=== PATIENT | male | born 1995 | race African-American/Black ===

== ENCOUNTER 2019-09-19 01:37 | Inpatient (IN) | payer OTHER ==
[~2019-09-19] VITALS: Ht 180.3 cm; Wt 76.1 kg
[2019-09-19] VITALS (45 sets, daily range): BP systolic 97–160; BP diastolic 51–97
[2019-09-19] MEDS ORDERED: KETOROLAC 60 MG/2 ML VIAL IM ONE (02:30)
[2019-09-19] MEDS ORDERED: KCL 20MEQ IN D5/NS 1000ML 1,000 ML IV SCH (02:59)
[2019-09-19] MEDS ORDERED: ACETAMINOPHEN TAB 650MG DOSE (2X325MG) PO PRN (03:00)
[2019-09-19] MEDS ORDERED: PERCOCET 5MG/325MG TAB PO PRN ×2 (03:00)
[2019-09-19] MEDS ORDERED: LEVALBUTEROL 1.25 MG/0.5 ML CONCENTRATE NEB NEB PRN (03:00)
[2019-09-19] MEDS ORDERED: ONDANSETRON 4MG/2ML VIAL IV PRN (03:00)
[2019-09-19] MEDS ORDERED: BISACODYL 10 MG SUPP PR PRN (03:00)
[2019-09-19 03:36] LABS: BASO % 0.4 % (0.0-1.0); EOS # 0.1 10^3/uL (0.0-0.5); EOS % 0.7 % (0.0-3.0); HEMATOCRIT 44.1 % (42.0-52.0); HEMOGLOBIN 14.8 g/dl (13.5-17.5); LYMPH # 2.5 10^3/uL (1.5-5.0); LYMPH % 35.6 % (24.0-44.0); MEAN CORPUSCULAR HEMOGLOBIN 30.5 pg (27.0-33.0); MEAN CORPUSCULAR HGB CONC 33.6 g/dl (32.0-36.5); MEAN CORPUSCULAR VOLUME 90.9 fl (80.0-96.0); MONO # 0.6 10^3/uL (0.0-0.8); MONO % 7.9 % (0.0-5.0); NEUTROPHILS # 3.9 10^3/uL (1.5-8.5); NEUTROPHILS % 55.3 % (36.0-66.0); PLATELET COUNT, AUTOMATED 333 10^3/uL (150-450); RED BLOOD COUNT 4.85 10^6/uL (4.30-6.10); WHITE BLOOD COUNT 7.1 10^3/uL (4.0-10.0)
[2019-09-19] MEDS ORDERED: flumazeniL 0.5 MG/5 ML VIAL As Ordered ONE (03:36)
[2019-09-19] MEDS ORDERED: MIDAZOLAM INJ 2MG/2ML VIAL (J2250 PER 1MG) As Ordered ONE (03:37)
[2019-09-19] MEDS ORDERED: LIDOCAINE 1% MDV 20ML VIAL As Ordered ONE (03:39)
[2019-09-19 03:47] LABS: INR 1.09; PROTHROMBIN TIME 13.8 SECONDS (11.8-14.0)
[2019-09-19 03:48] LABS: PARTIAL THROMBOPLASTIN TIME 31.4 SECONDS (25.0-38.4)
[2019-09-19 04:03] LABS: BLOOD UREA NITROGEN 16 MG/DL (7-18); CALCIUM LEVEL 9.4 MG/DL (8.5-10.1); CARBON DIOXIDE LEVEL 27 MEQ/L (21-32); CHLORIDE LEVEL 107 MEQ/L (98-107); CREATININE FOR GFR 1.35 MG/DL (0.70-1.30); GLOMERULAR FILTRATION RATE > 60.0 (>60); GLUCOSE, FASTING 99 MG/DL (70-100); POTASSIUM SERUM 4.1 MEQ/L (3.5-5.1); SODIUM LEVEL 139 MEQ/L (136-145)
[2019-09-19] MEDS ORDERED: KETOROLAC 30 MG/ML 1ML VIAL As Ordered ONE (04:16)
--- NOTE | 2019-09-19 04:27 | REP ---
Clinical: Right-sided chest pain. Technique: PA and lateral. Findings: There is a large right pneumothorax with relatively mild contralateral mediastinal shift. The mediastinum and cardiac silhouette are otherwise normal in appearance. The left hemithorax is well-aerated and clear. The skeletal structures are intact. Impression: Large right tension pneumothorax with mild contralateral mediastinal shift. Electronically Signed by Haja Beth MD 09/19/2019 04:19 A
[2019-09-19] MEDS ORDERED: MIDAZOLAM INJ 2MG/2ML VIAL (J2250 PER 1MG) IV STA ×2 (04:48)
[2019-09-19] MEDS ORDERED: LIDOCAINE 1% MDV 20ML VIAL IM ONE (05:00)
[2019-09-19] MEDS ORDERED: KETOROLAC 30 MG/ML 1ML VIAL IV ONE (05:00)
--- NOTE | 2019-09-19 05:02 | REP ---
Clinical: Status post chest tube placement. Comparison: 09/19/2019 and 02:29 a.m.. Findings: Right chest tube has been placed with its tip approaching the medial apex. Reinflation and improved aeration to the right hemithorax is noted with small residual pneumothorax and elements of right basilar atelectasis noted. Mediastinum and cardiac silhouette are relatively normal. The left hemithorax is well-aerated and clear. No left-sided effusion or pneumothorax. The skeletal structures are intact. Impression: 1. Subsequent satisfactory right chest tube placement with partial reinflation and improved aeration to the right hemithorax. Small residual right apical pneumothorax noted. 2. Small amount of residual right basilar atelectasis and possible partial collapse along the medial right hemithorax. Electronically Signed by Haja Beth MD 09/19/2019 04:53 A
--- NOTE | 2019-09-19 06:07 | RO ---
DATE OF PROCEDURE: 09/19/2019 PREPROCEDURE DIAGNOSIS: Right pneumothorax. POSTPROCEDURE DIAGNOSIS: Right pneumothorax. PROCEDURE: Insertion of right lateral anterior chest tube. SURGEON: Dr. Tim Butler LANDSCAPE PAINTER: ANESTHESIA: DESCRIPTION OF PROCEDURE: Under satisfactory moderate sedation achieved with 4 mg of Versed, the patient was prepped and draped in the usual sterile fashion. The skin, subcutaneous tissue, muscle and pleura were infiltrated with 1% lidocaine. Incision was made and the chest was entered in the approximate fourth intercostal space. A tunnel was created without difficulty and a #20 chest tube was placed anteriorly. The chest tube was secured to the chest wall with #2 Tevdek suture and connected to the Pleur-evac. The patient tolerated the procedure well and a chest x-ray is pending.
--- NOTE | 2019-09-19 06:39 | HPE ---
DATE OF ADMISSION: 09/19/2019 The patient is seen at the request of Dr. Ceh in the emergency room for chest pain, shortness of breath and a pneumothorax on the right. HISTORY OF PRESENT ILLNESS: The patient is a 24-year-old, black male who approximately four days ago on felt a sudden lower chest on his right side. This was shortly thereafter accompanied by shortness of breath. The pain gradually subsided, but the shortness of breath has gotten worse over the last three to four days. He is short of breath walking around his house. He has had no cough. No fever, chills, or sweats. The chest pain is located in the inferior border of his chest on the right side anteriorly and laterally. It is exacerbated by taking a deep breath. It has gradually subsided over the last few days. There is no dysphagia, although he says he has not been eating as well as he usually does. There is no history of trauma. There is no history of vigorous exercise in or around the time he experienced this chest pain and shortness of breath. PAST MEDICAL HISTORY: None. PAST SURGICAL HISTORY: Bilateral anterior cruciate ligament repairs and an inguinal hernia in the past. ALLERGIES: None. MEDICATIONS AT HOME: None. TRAVEL HISTORY: He was brought up in [place]. He has traveled to the [facility] and has recently deployed and returned from [place]. EXPOSURES: No exposures to tuberculosis. No dogs, birds or cats at home. HABITS: He used to smoke about a pack a week, but quit two years ago. Occasionally imbibes alcohol. No illicit drugs. OCCUPATIONAL HISTORY: He is in the . He works as a supply sergeant. No asbestos exposure. REVIEW OF SYSTEMS: Constitutional: See history of present illness (HPI). Eyes: Without diplopia. Without amaurosis fugax. Without prior jaundice. Nose: Without epistaxis. Mouth: Has his own teeth. Respiratory See HPI. Cardiac: Without prior myocardial infarctions, pressure type pain or intermittent claudication. No peripheral edema. GI: Without nausea, vomiting, diarrhea, constipation, melena, hematochezia, abdominal pain or hematemesis. : Without dysuria, hematuria or history of renal stones. Endocrine: Without diabetes. Without thyroid disease. Neurologic: Without paresthesias, paralyses or paresthesias. Psychiatric: Without pathological anxieties, depressions or psychoses. PHYSICAL EXAMINATION: Well developed, well nourished, black male in no acute distress. Temperature 98.6, heart rate 62 in a sinus rhythm, respiratory rate of 16 without the use of accessory muscles, who is 100% saturated on room air. Eyes: Pupils equal round and reactive to light. Extraocular muscles intact. Sclerae nonicteric. Nose: Without deformity. Mouth: Shows his mucous membranes to be pink and moist. Lips and commissures without lesions. There is no thrush. Teeth in good repair. Head: Normocephalic. Neck: Supple. There is no jugular venous distention. No subcutaneous emphysema. Trachea is midline. He has 2+ carotid upstrokes. No lymphadenopathy. No thyromegaly. Lungs: Show markedly decreased breath sounds on the right side. Percussion note is hyperresonant on the right side. Left side shows normal vesicular sounds, without wheezes, rhonchi or rales. Cardiac: Without murmurs, clicks, gallops or rubs. I cannot feel his point of maximal impulse (PMI). S1, S2 are normal Abdomen: Soft. Nontender. Bowel sounds are positive. There is no hepatomegaly. No costovertebral angle (CVA) tenderness. Extremities: Show no pretibial edema. No calf tenderness. No differential swelling of the upper extremities. Skin: Warm, dry and perfused. Without cyanosis or mottling, including that of the nail beds and knees. Neurologic: Shows II-XII intact along with gross motor and gross sensation intact. Gait is not tested. Psychiatric: Shows him to be awake, alert and oriented times three with appropriate mood and affect and conversational. His white count is 7.1 with a hemoglobin and hematocrit of 14.8 and 44.1 respectively with a platelet count of 333. Differential shows 55% neutrophils, 35% lymphocytes, 7% monocytes. There are no immature forms and no toxic granulations. Electrolytes are normal and his BUN and creatinine are 16 and 1.35. He is very muscular and works out and a creatinine of 1.35 is not unexpected. Glucose is 99 with a calcium of 9.4. PT/INR are 13.8/1.0 respectively with a PTT of 31 seconds. His chest x-ray shows a 50-60% pneumothorax on the right side. There is a shift to the left of the mediastinum. There is no subcutaneous emphysema. There are no infiltrates. His lower lobe is pressed and pancaked against the mediastinum. IMPRESSION: Right pneumothorax, atraumatic. PLAN AND DISCUSSION: I will immediately place a chest tube. It looks as though on the chest x-ray that the cupula is still applied to the chest wall and I will therefore place a chest tube laterally, but aim it anteriorly. As noted above, his creatinine is expected as he is very muscular and has increased muscle mass. I will treat his pain with Toradol, Percocet or [place]. I will obtain a CT of his chest once the lung is reexpanded to the chest wall. Will treat him with aggressive lung expansion therapy.
[2019-09-19] MEDS: NORCO, ANEXSIA 5/325MG TABLET (HYDROcodone/ACETAMINOPHEN) PO PRN ×3 (08:12→20:10)
[2019-09-19] MEDS: LEVALBUTEROL 1.25 MG/0.5 ML CONCENTRATE NEB NEB SCH ×3 (08:26→20:07)
[2019-09-19] MEDS: DOCUSATE SODIUM 100 MG CAP PO SCH ×2 (08:47→20:08)
[2019-09-19] MEDS: PANTOPRAZOLE 40MG TAB (PROTONIX) PO SCH (08:48)
[2019-09-19] MEDS: HEPARIN SOD (PORCINE) 5000UNITS/ML VIAL (J1644 PER 1000UNITS) SC SCH ×2 (08:48→20:09)
[2019-09-19] MEDS: MOM 30ML SUSPENSION UDC PO SCH (08:48)
[2019-09-19] MEDS: KETOROLAC 30 MG/ML 1ML VIAL IV SCH ×3 (11:25→22:19)
[2019-09-19] MEDS ORDERED: SLF 3 ML SYR IV PRN (16:30)
[2019-09-19] MEDS: SLF 3 ML SYR IV SCH (20:11)
[2019-09-20] VITALS: BP 130/65
[2019-09-20] MEDS: NORCO, ANEXSIA 5/325MG TABLET (HYDROcodone/ACETAMINOPHEN) PO PRN ×3 (00:57→15:33)
[2019-09-20] MEDS: LEVALBUTEROL 1.25 MG/0.5 ML CONCENTRATE NEB NEB SCH ×4 (01:46→19:38)
[2019-09-20 04:00] VITALS: BP 109/51
[2019-09-20] MEDS: KETOROLAC 30 MG/ML 1ML VIAL IV SCH ×4 (05:00→23:43)
[2019-09-20] MEDS: SLF 3 ML SYR IV SCH ×3 (05:47→20:41)
[2019-09-20 06:20] LABS: BASO % 0.3 % (0.0-1.0); EOS # 0.1 10^3/uL (0.0-0.5); EOS % 1.4 % (0.0-3.0); HEMATOCRIT 39.8 % (42.0-52.0); HEMOGLOBIN 13.3 g/dl (13.5-17.5); LYMPH # 2.6 10^3/uL (1.5-5.0); LYMPH % 43.9 % (24.0-44.0); MEAN CORPUSCULAR HEMOGLOBIN 30.6 pg (27.0-33.0); MEAN CORPUSCULAR HGB CONC 33.4 g/dl (32.0-36.5); MEAN CORPUSCULAR VOLUME 91.5 fl (80.0-96.0); MONO # 0.4 10^3/uL (0.0-0.8); MONO % 7.3 % (0.0-5.0); NEUTROPHILS # 2.8 10^3/uL (1.5-8.5); NEUTROPHILS % 46.9 % (36.0-66.0); PLATELET COUNT, AUTOMATED 290 10^3/uL (150-450); RED BLOOD COUNT 4.35 10^6/uL (4.30-6.10); WHITE BLOOD COUNT 5.9 10^3/uL (4.0-10.0)
[2019-09-20 06:41] LABS: BLOOD UREA NITROGEN 13 MG/DL (7-18); CALCIUM LEVEL 8.4 MG/DL (8.5-10.1); CARBON DIOXIDE LEVEL 28 MEQ/L (21-32); CHLORIDE LEVEL 105 MEQ/L (98-107); CREATININE FOR GFR 1.34 MG/DL (0.70-1.30); GLOMERULAR FILTRATION RATE > 60.0 (>60); GLUCOSE, FASTING 90 MG/DL (70-100); POTASSIUM SERUM 3.8 MEQ/L (3.5-5.1); SODIUM LEVEL 138 MEQ/L (136-145)
[2019-09-20 08:00] VITALS: BP 116/56
[2019-09-20] MEDS: DOCUSATE SODIUM 100 MG CAP PO SCH ×2 (08:23→20:40)
[2019-09-20] MEDS: HEPARIN SOD (PORCINE) 5000UNITS/ML VIAL (J1644 PER 1000UNITS) SC SCH ×2 (08:24→20:40)
[2019-09-20] MEDS: MOM 30ML SUSPENSION UDC PO SCH (08:24)
[2019-09-20] MEDS: PANTOPRAZOLE 40MG TAB (PROTONIX) PO SCH (08:24)
--- NOTE | 2019-09-20 08:44 | REP ---
Clinical: Recent idiopathic pneumothorax. Technique: Axial noncontrast images from the thoracic inlet to the upper abdomen with coronal and sagittal re-formations. Findings: Mild left and moderate right apical scarring is appreciated along with the formation of apical blebs primarily noted in the right apex with multiple chronic septations. Largest right-sided bleb measures roughly 4 cm maximal diameter. A right-sided chest tube is identified extending to the anterior right apex and the previously noted pneumothorax has essentially resolved. Mild right middle lobe and right lower lobe air space disease/atelectasis noted. No significant focal consolidation. No effusion. Tracheobronchial tree appears patent and relatively normal. No obvious adenopathy. Thoracic aorta, pulmonary vasculature, and heart/pericardium appear relatively normal by noncontrast evaluation. Musculoskeletal structures are intact without focal abnormality. Impression: 1. Biapical scarring with few blebs and chronic septations (right greater than left) which may in fact be related to the recent right-sided pneumothorax. 2. Right apical chest tube in stable position and right pneumothorax essentially resolved. Mild right basilar atelectasis/air space disease noted. Electronically Signed by Haja Beth MD 09/20/2019 08:35 A
--- NOTE | 2019-09-20 11:45 | REP ---
Clinical: Pneumothorax. Technique: PA and lateral. Comparison: 09/19/2019. Findings: Right apical chest tube noted. The right hemithorax demonstrates significantly improved reinflation and aeration. Small residual right apical pneumothorax and/or possible right apical bullous changes cannot be excluded. The left hemithorax is clear. The cardiac silhouette is normal. Skeletal structures are intact. Impression: Significant reexpansion and improved aeration to the right hemithorax. Right apical pneumothorax versus small chronic bullous changes cannot be excluded or differentiated. Electronically Signed by Haja Beth MD 09/20/2019 08:16 A
[2019-09-20 12:00] VITALS: BP 126/58
--- NOTE | 2019-09-20 12:10 | IPN ---
DATE OF SERVICE: 09/20/2019 Mr. Pratt pain is being well controlled. There is no air leak in his chest tube. I did obtain a CT scan today which I will discuss below. His vital signs show a maximum temperature (Tmax) of 97.9 with a heart rate that ranges between 67 and 58 in a sinus rhythm, respiratory rate of 16-18 without the use of accessory muscles, who is 99% to 100% saturated on room air, and whose blood pressure is ranging between 116/56 to 109/51. His intake and output over the past 24 hours has been recorded as 2205 in and 1278 out for a positivity of 927 mL. He has put out 28 mL from the chest tube, and there is no air leak. Weight today is 84.9 kg compared to 81.3 kg yesterday. On physical examination, his lungs show normal vesicular sounds on either side. Breath sounds are equal. There are no wheezes, rales, or rhonchi. The cardiac examination: Is without murmurs, clicks, gallops, or rubs. I cannot feel his point of maximal impulse (PMI). S1, S2 are normal. Abdomen: Soft. Nontender. Bowel sounds are positive. There is no hepatomegaly. No costovertebral angle (CVA) tenderness. Extremities: Show no pretibial edema. No calf tenderness. No differential swelling of the upper extremities. Skin: Warm, dry, and perfused. Without cyanosis or mottling, including that of the nail beds and the knees. Neck is supple. There is no jugular venous distention, no subcutaneous emphysema. Trachea is midline. Mouth: Shows his mucous membranes to be pink and moist. Lips and commissures without lesions. There is no thrush. Eyes: Show his pupils to be equal and reactive. Extraocular motor intact. Sclerae anicteric. Neurologic: Shows II-XII intact along with gross motor and gross sensation intact. Gait is not tested. Psychiatric: Shows him to be awake, alert, and oriented times three with appropriate mood and affect and conversational. His white count is 5.9 with a hemoglobin and hematocrit of 13.3 and 39.8 respectively. Platelet count is 290 and stable. Differential shows 46% neutrophils, 43% lymphocytes, 7% monocytes. There are no immature forms and no toxic granulations. His electrolytes are normal and a BUN and creatinine of 13 and 1.34. Calcium is 8.4, glucose is 90. His chest x-ray today shows his lung fully expanded to the chest wall. I was concerned on the immediate postprocedure x-ray that his lung was not completely inflated. Today, on his chest x-ray, it looks flattened to the chest wall. His lateral film does not show subcutaneous emphysema nor is there subcutaneous emphysema seen on the PA film. Chest tube is in good place. His chest CT done this morning show extensive large emphysematous bullae and bleb disease in the right upper lobe and to a lesser extent in the left upper lobe. This is most vividly seen on the coronal reconstruction. I do not see emphysematous changes in the lower lobes or in the right middle lobe. The lung is fully expanded to the chest wall. He has compressive atelectasis changes in the right lower lobe. There is a smooth mass or nodule in the apical basal segment of the lower lobe. This looks more like rounded atelectasis. He is not fluid in the fissure, however. The emphysematous bleb disease on the right is also vividly illustrated on the sagittal reconstruction. To the lesser extent, there is bleb disease on the left side. IMPRESSION: 1. Spontaneous pneumothorax, right side, atraumatic. 2. Distal emphysematous bleb and bullae disease. PLAN AND DISCUSSION: I do not see emphysematous disease throughout the lower lobes, but I will order an alpha-1 antitrypsin. He has a very limited smoking history, to be smoking a pack per week but quit 2 or 3 years ago. I would be surprised if that amount of smoking would be causing this distal emphysematous bleb disease. I suspect it is congenital. As this is his first spontaneous pneumothorax, I would not recommend going to the operating room, although I have counseled him regarding heavy lifting for the next 6 weeks. Should this happen again, he should not ignore the symptomatology and get himself to the emergency room right away. 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
[2019-09-20 16:00] VITALS: BP 120/80
[2019-09-20 20:00] VITALS: BP 135/76
[2019-09-21] VITALS: BP 137/71
[2019-09-21] MEDS: LEVALBUTEROL 1.25 MG/0.5 ML CONCENTRATE NEB NEB SCH ×4 (01:26→19:52)
[2019-09-21 04:00] VITALS: BP 110/55
[2019-09-21] MEDS: KETOROLAC 30 MG/ML 1ML VIAL IV SCH ×4 (04:02→23:00)
[2019-09-21 05:50] LABS: BASO % 0.2 % (0.0-1.0); EOS # 0.1 10^3/uL (0.0-0.5); EOS % 1.2 % (0.0-3.0); HEMATOCRIT 39.8 % (42.0-52.0); HEMOGLOBIN 13.4 g/dl (13.5-17.5); LYMPH # 2.1 10^3/uL (1.5-5.0); LYMPH % 36.8 % (24.0-44.0); MEAN CORPUSCULAR HEMOGLOBIN 30.8 pg (27.0-33.0); MEAN CORPUSCULAR HGB CONC 33.7 g/dl (32.0-36.5); MEAN CORPUSCULAR VOLUME 91.5 fl (80.0-96.0); MONO # 0.4 10^3/uL (0.0-0.8); MONO % 6.9 % (0.0-5.0); NEUTROPHILS # 3.1 10^3/uL (1.5-8.5); NEUTROPHILS % 54.7 % (36.0-66.0); PLATELET COUNT, AUTOMATED 296 10^3/uL (150-450); RED BLOOD COUNT 4.35 10^6/uL (4.30-6.10); WHITE BLOOD COUNT 5.7 10^3/uL (4.0-10.0)
[2019-09-21 06:19] LABS: BLOOD UREA NITROGEN 12 MG/DL (7-18); CALCIUM LEVEL 9.1 MG/DL (8.5-10.1); CARBON DIOXIDE LEVEL 28 MEQ/L (21-32); CHLORIDE LEVEL 104 MEQ/L (98-107); GLOMERULAR FILTRATION RATE > 60.0 (>60); GLUCOSE, FASTING 101 MG/DL (70-100); POTASSIUM SERUM 3.9 MEQ/L (3.5-5.1); SODIUM LEVEL 139 MEQ/L (136-145)
[2019-09-21] MEDS: SLF 3 ML SYR IV SCH ×3 (06:37→20:47)
[2019-09-21] MEDS: DOCUSATE SODIUM 100 MG CAP PO SCH ×2 (07:54→20:47)
[2019-09-21] MEDS: PANTOPRAZOLE 40MG TAB (PROTONIX) PO SCH (07:54)
[2019-09-21] MEDS: MOM 30ML SUSPENSION UDC PO SCH (07:55)
[2019-09-21] MEDS: HEPARIN SOD (PORCINE) 5000UNITS/ML VIAL (J1644 PER 1000UNITS) SC SCH ×2 (07:55→20:47)
[2019-09-21 08:00] VITALS: BP 130/69
--- NOTE | 2019-09-21 08:07 | REP ---
Clinical: Follow up pneumothorax. Technique: PA and lateral. Comparison: 09/20/2019. Findings: Right apical chest tube in stable position. No residual pneumothorax. Right apical scarring/bullous changes as confirmed by recent CT are again identified and stable. No new acute pleuroparenchymal process appreciated. Mediastinum and cardiac silhouette are normal. Skeletal structures are intact. Impression: No residual pneumothorax. No new acute process. Electronically Signed by Haja Beth MD 09/21/2019 07:58 A
--- NOTE | 2019-09-21 10:05 | IPN ---
DATE: 09/21/2019 Mr. Tapia has had a stable 24 hours. There is no air leak and his pain is being well controlled. His vital signs show a maximum temperature (T-max) of 98.1 with a heart rate that ranges between 72 and 55 and in sinus rhythm. Respiratory rate of 16-18 without the use of accessory muscles who is 97-99% saturated in room air and his blood pressure is ranging between 137/71 to 110/55. His intake and output over the last 24 hours has been recorded as 1320 in and 1502 out for a negativity of 180 mL. His has put 2 mL out the chest tube and there is no air leak. His weight today is 84.2 kg today compared to 84.9 kg yesterday. On physical examination, his lungs show equal breath sounds in either side with normal vesicular sounds without wheezes, rhonchi or rales. Percussion note is full to the diaphragm. Cardiac exam is without murmurs, clicks, gallops or rubs. I cannot feel his point of maximum impulse (PMI). S1 and S2 are normal. Abdomen is soft and nontender. Bowel sounds are positive. There is no hepatomegaly. No costovertebral angle (CVA) tenderness. Extremities still show 1+ pretibial edema with no calf tenderness. No differential swelling of the upper extremities. Skin is warm, dry and perfused without cyanosis or mottling including that of the nail beds and knees. Neck is supple. There is no jugular venous distention. No subcutaneous emphysema. Trachea is midline. Mouth shows his mucous membranes to be pink and moist. Lips and commissures are without lesions. There is no thrush. Eyes show his pupils to be equal and reactive. Extraocular movements intact. Sclerae nonicteric. Neurologic shows II-XII intact along with gross motor and gross sensation intact. Gait is not tested. Psychiatric showed him to be awake, alert and oriented times three with appropriate and affect and conversational. His white count today is 5.7 with hemoglobin and hematocrit of 13.4 and 39.8, unchanged from yesterday with a platelet count of 286 and stable. Differential shows 54% neutrophils, 36% lymphocytes, 6% monocytes. There are no immature forms or toxic granulations. Electrolytes are normal with BUN and creatinine of 12 and 1.30, glucose 101 and calcium 9.1. Alpha 1 antitrypsin is still pending. His chest x-ray today shows the lung fully expanded to the chest wall. Costophrenic angles are sharp. There are no infiltrates. There is no subcutaneous emphysema. Chest tube is in good place. IMPRESSION: 1. Subcutaneous pneumothorax right side, atraumatic. 2. 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 PLAN AND DISCUSSION: I will remove his chest tube today. I will get a chest x-ray tomorrow. If the lung is still up, will plan for discharge in the morning. I have gain counseled him in regard to reappearance of symptoms that he should seek immediate medical attention. He does have extensive bleb disease in the upper lobe. I suspect one of these will break eventually.
[2019-09-21 12:00] VITALS: BP 137/76
[2019-09-21 16:00] VITALS: BP 128/61
[2019-09-21 20:00] VITALS: BP 146/67
[2019-09-22] VITALS: BP 139/65
[2019-09-22] MEDS: LEVALBUTEROL 1.25 MG/0.5 ML CONCENTRATE NEB NEB SCH ×4 (01:50→19:47)
[2019-09-22 04:00] VITALS: BP 106/48
[2019-09-22] MEDS: KETOROLAC 30 MG/ML 1ML VIAL IV SCH ×4 (05:00→23:00)
[2019-09-22] MEDS: SLF 3 ML SYR IV SCH ×3 (05:19→21:30)
[2019-09-22 06:17] LABS: BASO % 0.3 % (0.0-1.0); EOS # 0.1 10^3/uL (0.0-0.5); EOS % 1.3 % (0.0-3.0); HEMATOCRIT 40.7 % (42.0-52.0); HEMOGLOBIN 13.6 g/dl (13.5-17.5); LYMPH # 2.4 10^3/uL (1.5-5.0); LYMPH % 38.5 % (24.0-44.0); MEAN CORPUSCULAR HEMOGLOBIN 30.6 pg (27.0-33.0); MEAN CORPUSCULAR HGB CONC 33.4 g/dl (32.0-36.5); MEAN CORPUSCULAR VOLUME 91.7 fl (80.0-96.0); MONO # 0.5 10^3/uL (0.0-0.8); MONO % 8.3 % (0.0-5.0); NEUTROPHILS # 3.2 10^3/uL (1.5-8.5); NEUTROPHILS % 51.4 % (36.0-66.0); PLATELET COUNT, AUTOMATED 305 10^3/uL (150-450); RED BLOOD COUNT 4.44 10^6/uL (4.30-6.10); WHITE BLOOD COUNT 6.1 10^3/uL (4.0-10.0)
[2019-09-22 06:35] LABS: BLOOD UREA NITROGEN 12 MG/DL (7-18); CALCIUM LEVEL 9.3 MG/DL (8.5-10.1); CARBON DIOXIDE LEVEL 30 MEQ/L (21-32); CHLORIDE LEVEL 104 MEQ/L (98-107); CREATININE FOR GFR 1.33 MG/DL (0.70-1.30); GLOMERULAR FILTRATION RATE > 60.0 (>60); GLUCOSE, FASTING 82 MG/DL (70-100); POTASSIUM SERUM 3.7 MEQ/L (3.5-5.1); SODIUM LEVEL 140 MEQ/L (136-145)
--- NOTE | 2019-09-22 07:02 | REP ---
Clinical: Follow up pneumothorax. Comparison: 09/21/2019, 09/20/2019. Findings: Right-sided chest tube has been removed and a small pneumothorax of approximately 15% has recurred. Remainder examination is stable and grossly normal. Apical blebs/bullae (right greater than left) are again identified. Impression: 1. Residual right pneumothorax of approximately 15%. Electronically Signed by Haja Beth MD 09/22/2019 06:53 A
[2019-09-22 08:00] VITALS: BP 156/67
[2019-09-22] MEDS: MOM 30ML SUSPENSION UDC PO SCH (09:00)
[2019-09-22] MEDS: DOCUSATE SODIUM 100 MG CAP PO SCH ×2 (09:00→21:00)
[2019-09-22] MEDS: HEPARIN SOD (PORCINE) 5000UNITS/ML VIAL (J1644 PER 1000UNITS) SC SCH ×2 (09:00→21:00)
[2019-09-22] MEDS: PANTOPRAZOLE 40MG TAB (PROTONIX) PO SCH (09:00)
[2019-09-22 12:00] VITALS: BP 157/66
[2019-09-22 16:00] VITALS: BP 128/56
--- NOTE | 2019-09-22 16:25 | IPN ---
DATE: 09/22/2019 My intent today was to discharge Mr. Tapia, and in fact, I had already written discharge orders. However, this morning his x-ray shows a recurrence of his pneumothorax after removing the chest tube yesterday. At this point in time, he is asymptomatic. On physical examination, his vital signs show a maximum temperature (T max) of 98.6 with a heart rate that ranges between 78 and 86 and is sinus rhythm, a respiratory rate of 16 to 22 without the use of accessory muscles who is 100% saturated on room air, and whose blood pressure is ranging between 146/67 to 106/48. Intake and output over the past 24 hours has been recorded as 1500 in and 1150 out for a positivity of 350 mL. He weighs 85.2 kg today compared to 84.2 kg yesterday. PHYSICAL EXAMINATION: He has equal breath sounds on either side. I hear no wheezes, rhonchi, or rales. Percussion note is full to the diaphragm. Cardiac exam is without murmurs, clicks, gallops or rubs. I cannot feel his point of maximum impulse (PMI). S1, S2 are normal. Abdomen is soft and nontender. Bowel sounds are positive. There is no hepatomegaly or CVA tenderness. Extremities show no pretibial edema. No calf tenderness. No differential swelling of the upper extremities. His skin is warm, dry and perfused without cyanosis or mottling, including that of the nail beds and the knees. Neck is supple. There is no jugular venous distention, no subcutaneous emphysema. Trachea is midline. Mouth shows his mucous membranes to be pink and moist. Lips and commissures without lesions. There is no thrush. Eyes show his pupils to be equal and reactive. Extraocular motions intact. Sclerae anicteric. Neurologic shows II-XII intact along with gross motor and gross sensation intact. Gait is not tested. Psychiatric shows him to be awake and alert, oriented times three with appropriate mood and affect and conversational. His white count today is 6.1 with a hemoglobin and hematocrit of 13.4 and 40.7. Platelet count is 305 and is stable and differential shows 51% neutrophils, 38% lymphocytes, 8% monocytes. There are no immature forms. No toxic granulations. His electrolytes are normal today with a BUN and creatinine of 12 and 1.33, unchanged from his admission creatinine. Glucose is 82 with a calcium of 9.3. PT/INR is 13.8 and 1.09 with a PTT of 31.4 seconds. Chest x-ray shows a 10% pneumothorax, recurrent on the right side. There is no subcutaneous emphysema. Costophrenic angles are sharp. I see no infiltrates. IMPRESSION: 1. Recurrent pneumothorax, right side. 2. 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 PLAN AND DISCUSSION: Seeing the pneumothorax has now recurred, and his extensive distal emphysematous disease, I have indicated to him that there are now indications that we should take him to surgery and remove the blebs and bulla and do a talc pleurodesis. He was initially upset about that, which is not unreasonable considering that he was expecting to go home. He is insisting that his be allowed to come to the hospital, and I have explained to him that no visitors are allowed because of the COVID-19 epidemic. He was initially going to sign out against medical advice (AMA); however, he has changed his mind and we will proceed to the operating room tomorrow. I explained to him the risks and complications, and he is willing to proceed. We have talked about the epidural, Parisi catheter, and the length of hospital stay, which will be at least 5 days with the chest tubes being kept in for 5 days. The patient understands and is willing to proceed. FELIX
[2019-09-22 20:00] VITALS: BP 119/58
[2019-09-23] VITALS: BP 129/69
[2019-09-23] MEDS: LEVALBUTEROL 1.25 MG/0.5 ML CONCENTRATE NEB NEB SCH ×4 (01:47→19:29)
[2019-09-23 04:00] VITALS: BP 127/58
[2019-09-23] MEDS: KETOROLAC 30 MG/ML 1ML VIAL IV SCH ×4 (04:47→23:13)
[2019-09-23] MEDS: SLF 3 ML SYR IV SCH ×2 (04:58→13:13)
[2019-09-23 05:21] LABS: BASO % 0.5 % (0.0-1.0); EOS # 0.1 10^3/uL (0.0-0.5); EOS % 1.4 % (0.0-3.0); HEMATOCRIT 40.5 % (42.0-52.0); HEMOGLOBIN 13.3 g/dl (13.5-17.5); LYMPH % 36.4 % (24.0-44.0); MEAN CORPUSCULAR HEMOGLOBIN 30.4 pg (27.0-33.0); MEAN CORPUSCULAR HGB CONC 32.8 g/dl (32.0-36.5); MEAN CORPUSCULAR VOLUME 92.5 fl (80.0-96.0); MONO # 0.5 10^3/uL (0.0-0.8); MONO % 9.2 % (0.0-5.0); NEUTROPHILS # 2.9 10^3/uL (1.5-8.5); NEUTROPHILS % 52.3 % (36.0-66.0); PLATELET COUNT, AUTOMATED 292 10^3/uL (150-450); RED BLOOD COUNT 4.38 10^6/uL (4.30-6.10); WHITE BLOOD COUNT 5.6 10^3/uL (4.0-10.0)
[2019-09-23 05:44] LABS: BLOOD UREA NITROGEN 12 MG/DL (7-18); CARBON DIOXIDE LEVEL 29 MEQ/L (21-32); CHLORIDE LEVEL 106 MEQ/L (98-107); CREATININE FOR GFR 1.31 MG/DL (0.70-1.30); GLOMERULAR FILTRATION RATE > 60.0 (>60); GLUCOSE, FASTING 93 MG/DL (70-100); SODIUM LEVEL 141 MEQ/L (136-145)
[2019-09-23] MEDS ORDERED: MUPIROCIN 2% OINT 22 GM TUBE TOP ONE (06:00)
[2019-09-23] MEDS ORDERED: ceFAZolin SOD 2 GM in IV 1 EA IV ONE (06:00)
[2019-09-23] MEDS: MOM 30ML SUSPENSION UDC PO SCH (07:46)
[2019-09-23] MEDS: DOCUSATE SODIUM 100 MG CAP PO SCH ×2 (07:46→21:00)
[2019-09-23] MEDS: HEPARIN SOD (PORCINE) 5000UNITS/ML VIAL (J1644 PER 1000UNITS) SC SCH ×2 (07:47→21:00)
[2019-09-23] MEDS: PANTOPRAZOLE 40MG TAB (PROTONIX) PO SCH (07:47)
[2019-09-23 08:00] VITALS: BP 118/76
--- NOTE | 2019-09-23 08:09 | REP ---
Clinical: Follow up pneumothorax. Comparison: 09/22/2019. Findings: Moderate right pneumothorax with small basilar fluid level has increased from prior examination. Mediastinum and cardiac silhouette are normal. Left hemithorax is clear. Skeletal structures are intact. Impression: Moderate right pneumothorax increased from prior examination. Electronically Signed by Haja Beth MD 09/23/2019 08:01 A
[2019-09-23 12:00] VITALS: BP 130/60
[2019-09-23] MEDS ORDERED: CETACAINE SPRAY 5GM As Ordered ONE (12:04)
[2019-09-23] MEDS ORDERED: STERILE TALC POWDER 3GM VIAL As Ordered ONE ×2 (12:04→12:06)
[2019-09-23] MEDS ORDERED: MUPIROCIN 2% OINT 22 GM TUBE As Ordered ONE (12:04)
[2019-09-23] MEDS ORDERED: BUPIVACAINE HCL 0.5% 10ML VIAL As Ordered ONE (12:05)
[2019-09-23] MEDS ORDERED: BUPIVACAINE LIPOSOME/PF 1.3% 20ML VIAL (13.3MG/ML)(EXPAREL)(C9290 PER1MG) As Ordered ONE (12:05)
[2019-09-23] MEDS ORDERED: TALCAIR POWDER BLOWER (CAN ONLY BE USED WITH 3GM TALC VIAL) XX ONE ×2 (12:05→12:36)
[2019-09-23] MEDS ORDERED: MIDAZOLAM INJ 2MG/2ML VIAL (J2250 PER 1MG) As Ordered ONE (13:59)
[2019-09-23] MEDS ORDERED: fentaNYL 100 MCG/2 ML INJECTION (J3010) As Ordered ONE ×3 (13:59→18:06)
[2019-09-23] MEDS: MIDAZOLAM INJ 2MG/2ML VIAL (J2250 PER 1MG) IV PRN ×2 (14:14→14:36)
[2019-09-23] MEDS ORDERED: ceFAZolin 2 GM/D5W 50 ML IV BAG (J0690 PER 500MG) As Ordered ONE (14:30)
[2019-09-23] MEDS ORDERED: propofoL 200 MG/20 ML VIAL As Ordered ONE (14:42)
[2019-09-23] MEDS ORDERED: LIDOCAINE 2% 100MG/5ML SDV (FOR ANES.) As Ordered ONE (14:42)
[2019-09-23] MEDS ORDERED: fentaNYL 250 MCG/5 ML INJECTION (J3010) As Ordered ONE (14:42)
[2019-09-23] MEDS ORDERED: ROCURONIUM BROMIDE 50 MG/5 ML VIAL As Ordered ONE ×2 (14:42→16:00)
[2019-09-23] MEDS ORDERED: fentaNYL 100 MCG/2 ML INJECTION (J3010) IV PRN (15:00)
[2019-09-23] MEDS ORDERED: METOCLOPRAMIDE INJ 10MG/2ML VIAL (J2765 PER 1) IV PRN ×3 (15:15→18:15)
[2019-09-23] MEDS ORDERED: diphenhydrAMINE 50MG/ML VIAL (J1200) IV PRN ×2 (15:15→18:00)
[2019-09-23] MEDS ORDERED: FENTANYL/BUPIVACAINE/NACL BAG 250 ML EPIDURAL SCH (15:15)
[2019-09-23] MEDS ORDERED: NALOXONE INJ 0.4MG/1ML VIAL (J2310 PER 1MG) IV PRN ×2 (15:15→18:00)
[2019-09-23] MEDS ORDERED: ONDANSETRON 4MG/2ML VIAL IV PRN ×4 (15:15→18:15)
[2019-09-23] MEDS ORDERED: WALLBOXKEY XX PRN ×2 (15:15→18:00)
[2019-09-23] MEDS ORDERED: EPIDURAL/PCA KEYS XX PRN ×2 (15:15→18:00)
[2019-09-23] MEDS ORDERED: PHENYLephrine HCL 500 MCG/5 ML (100MCG/ML) SYRINGE (J2370) As Ordered ONE ×2 (15:19→15:41)
[2019-09-23] MEDS ORDERED: BUPIVACAINE HCL 0.5% 30 ML VIAL As Ordered ONE (15:28)
[2019-09-23] MEDS ORDERED: METOCLOPRAMIDE INJ 10MG/2ML VIAL (J2765 PER 1) As Ordered ONE (15:52)
[2019-09-23] MEDS ORDERED: PHENYLEPHRINE 10MG/ML 1ML VIAL (J2370 PER 1) As Ordered ONE ×2 (15:53→15:54)
[2019-09-23] MEDS ORDERED: ePHEDrine SULFATE 25 MG/5 ML(5MG/ML) SYRINGE As Ordered ONE (15:56)
[2019-09-23] MEDS ORDERED: ONDANSETRON 4MG/2ML VIAL As Ordered ONE (16:35)
[2019-09-23] MEDS ORDERED: SUGAMMADEX SODIUM 500 MG/5 ML VIAL (BRIDION) As Ordered ONE (16:36)
[2019-09-23] MEDS ORDERED: FENTANYL 2MCG/ML BUPIVACAINE 0.0625% NACL 250ML IV BAG As Ordered ONE (17:23)
[2019-09-23] MEDS ORDERED: NORCO, ANEXSIA 5/325MG TABLET (HYDROcodone/ACETAMINOPHEN) PO PRN ×2 (17:45)
[2019-09-23] MEDS ORDERED: KETOROLAC 30 MG/ML 1ML VIAL IV SCH (17:45)
[2019-09-23] MEDS ORDERED: PERCOCET 5MG/325MG TAB PO PRN ×4 (17:45)
[2019-09-23] MEDS ORDERED: ACETAMINOPHEN TAB 650MG DOSE (2X325MG) PO PRN ×2 (17:45)
[2019-09-23] MEDS ORDERED: LEVALBUTEROL 1.25 MG/0.5 ML CONCENTRATE NEB NEB PRN ×2 (17:45)
[2019-09-23] MEDS ORDERED: BISACODYL 10 MG SUPP PR PRN ×2 (17:45)
[2019-09-23] MEDS ORDERED: HEPARIN SOD (PORCINE) 5000UNITS/ML VIAL (J1644 PER 1000UNITS) SC SCH (17:45)
[2019-09-23] MEDS ORDERED: ceFAZolin SOD 1 GM in D5W MINI-BAG PLUS 50 ML IV SCH (17:45)
[2019-09-23] MEDS ORDERED: KCL 20MEQ IN D5/NS 1000ML 1,000 ML IV SCH (18:00)
[2019-09-23] MEDS: fentaNYL 100 MCG/2 ML INJECTION (J3010) IV PRN ×2 (18:08→18:19)
[2019-09-23] MEDS ORDERED: MEPERIDINE INJ 25 MG/ML VIAL (J2175) As Ordered ONE (18:09)
[2019-09-23] MEDS: MEPERIDINE INJ 25 MG/ML VIAL (J2175) IV PRN ×2 (18:11→18:16)
[2019-09-23 18:14] LABS: ABG BASE EXCESS 0.7 (-2.0-2.0); ABG HCO3 27.6 MEQ/L (22.0-26.0); ABG O2 SATURATION 93.8 % (95.0-99.0); ABG PARTIAL PRESSURE CO2 53.2 mmHg (35.0-45.0); ABG PARTIAL PRESSURE O2 71.4 mmHg (75.0-100.0); ABG TOTAL CO2 29.2 MEQ/L (22.0-29.0); ABG pH (ARTERIAL) 7.333 UNITS (7.350-7.450)
[2019-09-23] MEDS ORDERED: LR 1,000 ML IV SCH (18:15)
[2019-09-23 18:19] LABS: BASO % 0.3 % (0.0-1.0); EOS % 0.5 % (0.0-3.0); HEMATOCRIT 43.3 % (42.0-52.0); HEMOGLOBIN 14.3 g/dl (13.5-17.5); LYMPH # 1.3 10^3/uL (1.5-5.0); LYMPH % 17.7 % (24.0-44.0); MEAN CORPUSCULAR HEMOGLOBIN 30.6 pg (27.0-33.0); MEAN CORPUSCULAR VOLUME 92.5 fl (80.0-96.0); MONO # 0.4 10^3/uL (0.0-0.8); MONO % 5.4 % (0.0-5.0); NEUTROPHILS # 5.7 10^3/uL (1.5-8.5); NEUTROPHILS % 75.7 % (36.0-66.0); PLATELET COUNT, AUTOMATED 281 10^3/uL (150-450); RED BLOOD COUNT 4.68 10^6/uL (4.30-6.10); WHITE BLOOD COUNT 7.6 10^3/uL (4.0-10.0)
[2019-09-23] MEDS: KCL 20MEQ IN D5/NS 1000ML 1,000 ML IV SCH (18:25)
[2019-09-23 18:39] LABS: BLOOD UREA NITROGEN 13 MG/DL (7-18); CARBON DIOXIDE LEVEL 27 MEQ/L (21-32); CHLORIDE LEVEL 105 MEQ/L (98-107); GLOMERULAR FILTRATION RATE > 60.0 (>60); GLUCOSE, FASTING 120 MG/DL (70-100); POTASSIUM SERUM 4.5 MEQ/L (3.5-5.1); SODIUM LEVEL 139 MEQ/L (136-145)
[2019-09-23 20:00] VITALS: BP 103/59
[2019-09-23] MEDS ORDERED: LEVALBUTEROL 1.25 MG/0.5 ML CONCENTRATE NEB NEB SCH (20:00)
[2019-09-23] MEDS ORDERED: DOCUSATE SODIUM 100 MG CAP PO SCH (21:00)
[2019-09-23 22:00] VITALS: BP 102/55
[2019-09-23] MEDS: ceFAZolin SOD 1 GM in D5W MINI-BAG PLUS 50 ML IV SCH (23:13)
[2019-09-24] VITALS (9 sets, daily range): BP systolic 92–116; BP diastolic 55–64; O2SAT 100
[2019-09-24] MEDS ORDERED: ceFAZolin SOD 1 GM in D5W MINI-BAG PLUS 50 ML IV SCH ×2
[2019-09-24] MEDS: LEVALBUTEROL 1.25 MG/0.5 ML CONCENTRATE NEB NEB SCH ×4 (01:43→20:11)
[2019-09-24] MEDS: KETOROLAC 30 MG/ML 1ML VIAL IV SCH ×3 (06:07→18:26)
[2019-09-24 06:24] LABS: ABG HCO3 25.3 MEQ/L (22.0-26.0); ABG O2 SATURATION 99.4 % (95.0-99.0); ABG PARTIAL PRESSURE CO2 43.5 mmHg (35.0-45.0); ABG PARTIAL PRESSURE O2 160.3 mmHg (75.0-100.0); ABG STANDARD HCO3 24.5 MEQ/L (22.0-26.0); ABG TOTAL CO2 26.6 MEQ/L (22.0-29.0); ABG pH (ARTERIAL) 7.382 UNITS (7.350-7.450)
[2019-09-24 06:31] LABS: BASO % 0.1 % (0.0-1.0); EOS % 0.1 % (0.0-3.0); HEMATOCRIT 37.9 % (42.0-52.0); HEMOGLOBIN 12.5 g/dl (13.5-17.5); LYMPH # 1.1 10^3/uL (1.5-5.0); LYMPH % 12.4 % (24.0-44.0); MEAN CORPUSCULAR HEMOGLOBIN 30.8 pg (27.0-33.0); MEAN CORPUSCULAR VOLUME 93.3 fl (80.0-96.0); MONO # 0.7 10^3/uL (0.0-0.8); MONO % 7.9 % (0.0-5.0); NEUTROPHILS # 7.1 10^3/uL (1.5-8.5); NEUTROPHILS % 79.2 % (36.0-66.0); PLATELET COUNT, AUTOMATED 259 10^3/uL (150-450); RED BLOOD COUNT 4.06 10^6/uL (4.30-6.10); WHITE BLOOD COUNT 8.9 10^3/uL (4.0-10.0)
[2019-09-24 07:01] LABS: BLOOD UREA NITROGEN 12 MG/DL (7-18); CALCIUM LEVEL 8.6 MG/DL (8.5-10.1); CARBON DIOXIDE LEVEL 28 MEQ/L (21-32); CHLORIDE LEVEL 103 MEQ/L (98-107); CREATININE FOR GFR 1.25 MG/DL (0.70-1.30); GLOMERULAR FILTRATION RATE > 60.0 (>60); GLUCOSE, FASTING 112 MG/DL (70-100); POTASSIUM SERUM 3.9 MEQ/L (3.5-5.1); SODIUM LEVEL 136 MEQ/L (136-145)
[2019-09-24] MEDS: KCL 20MEQ IN D5/NS 1000ML 1,000 ML IV SCH (07:55)
[2019-09-24] MEDS: ceFAZolin SOD 1 GM in D5W MINI-BAG PLUS 50 ML IV SCH ×2 (07:55→16:20)
[2019-09-24] MEDS: FENTANYL/BUPIVACAINE/NACL BAG 250 ML EPIDURAL SCH ×2 (07:56→17:04)
[2019-09-24] MEDS: DOCUSATE SODIUM 100 MG CAP PO SCH ×2 (07:58→20:49)
[2019-09-24] MEDS: PANTOPRAZOLE 40MG TAB (PROTONIX) PO SCH (07:58)
[2019-09-24] MEDS: MOM 30ML SUSPENSION UDC PO SCH (08:44)
[2019-09-24] MEDS ORDERED: PANTOPRAZOLE 40MG VIAL (C9113 PER 1) IV SCH (09:00)
[2019-09-24] MEDS ORDERED: MOM 30ML SUSPENSION UDC PO SCH (09:00)
[2019-09-24] MEDS ORDERED: PANTOPRAZOLE 40MG TAB (PROTONIX) PO SCH (09:00)
[2019-09-24] MEDS: HEPARIN SOD (PORCINE) 5000UNITS/ML VIAL (J1644 PER 1000UNITS) SC SCH ×2 (09:29→20:50)
--- NOTE | 2019-09-24 09:52 | REP ---
CHEST, SINGLE VIEW: Single view of the chest is performed and compared to a prior exam the same day. There has been placement of two right chest tubes. The moderate right basilar pneumothorax has resolved. No infiltrate is seen in either lung. The heart and mediastinum are unremarkable. Electronically Signed by Jayme Navas MD 09/24/2019 10:01 A
--- NOTE | 2019-09-24 10:13 | REP ---
CHEST, TWO VIEWS: Two views of the chest are performed. There are two right chest tubes in place. There is possible a tiny right apical pneumothorax. The lung dickson are otherwise unremarkable with no new infiltrate. The heart and mediastinum are unremarkable. Electronically Signed by Jayme Navas MD 09/24/2019 10:52 A
--- NOTE | 2019-09-24 10:35 | IPN ---
DATE: 09/24/2019 This is now the first postoperative day for Mr. Tapia. He has had a stable night of surgery. His vital signs show a maximum temperature (T max) of 98.2 with a heart rate that ranges between 78 and 62 in a sinus rhythm, with a respiratory rate of 14 to 16 without the use of accessory muscles, who is 100% saturated on 2 liters nasal cannula, and whose blood pressure is ranging between 102/55 to 92/59. His pain is well controlled and in fact he tells me he has none at all. His intake and output the past 24 hours has been recorded as 1135 in and 617 out for a positivity of 500 mL. Chest tube has put out 92 mL and there is a small air leak with forceful coughing. On physical examination, his lungs show normal vesicular sounds which are equal on either side. Percussion note is full to the diaphragm. Cardiac exam is without murmurs, clicks, gallops or rubs. I cannot feel his point of maximum impulse (PMI). S1, S2 are normal. Abdomen is soft and nontender. Bowel sounds are positive. There is no hepatomegaly and no costovertebral angle (CVA) tenderness. He is passing flatus. Extremities show no pretibial edema. No calf tenderness. No differential swelling of the upper extremities. Skin is warm, dry and perfused, without cyanosis or mottling, including that of the nail beds and the knees. Neck is supple. There is no jugular venous distention. No subcutaneous emphysema. Trachea is midline. Mouth shows his mucous membranes to be pink and moist. Lips and commissures without lesions. There is no thrush. Eyes show his pupils to be equal and reactive. Extraocular motions intact. Sclerae anicteric. Neurologic shows II-XII intact along with gross motor and gross sensation intact. Gait is not tested. Psychiatric shows him to be awake and alert, oriented times three with appropriate mood and affect and conversational. His white count today is 8.9 with a hemoglobin and hematocrit of 12.5 and 37.9 respectively. Platelet count is 259. Differential shows 79% neutrophils, 12% lymphocytes, 7% monocytes. There are no immature forms and no toxic granulations. His electrolytes are normal with a BUN and creatinine of 12 and 1.25 with a glucose of 112 and a calcium of 8.6. His chest x-ray today shows his lung now fully expanded to the chest wall. He staple line can clearly be seen. The costophrenic angles are sharp. There are no infiltrates. There is no subcutaneous emphysema. Chest tubes are in good place. His alpha 1 antitrypsin has come back 101, which is within normal limits. IMPRESSION: 1. Recurrent pneumothorax, right side. 2. 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 3. Postoperative day #1 status post bullectomy, wedge resection and talc pleurodesis. PLAN AND DISCUSSION: I will keep his chest tubes on suction. I will transfer him to the progressive care unit (PCU) today. I am gratified that his pain control is working well.
[2019-09-25] VITALS: BP 116/56
[2019-09-25] MEDS: ceFAZolin SOD 1 GM in D5W MINI-BAG PLUS 50 ML IV SCH ×3 (00:06→16:23)
[2019-09-25] MEDS: KETOROLAC 30 MG/ML 1ML VIAL IV SCH ×5 (00:06→23:50)
[2019-09-25] MEDS: LEVALBUTEROL 1.25 MG/0.5 ML CONCENTRATE NEB NEB SCH ×4 (02:00→19:30)
[2019-09-25 04:00] VITALS: BP 115/55
[2019-09-25 05:48] LABS: BASO % 0.4 % (0.0-1.0); EOS # 0.1 10^3/uL (0.0-0.5); EOS % 1.4 % (0.0-3.0); HEMATOCRIT 37.2 % (42.0-52.0); HEMOGLOBIN 12.4 g/dl (13.5-17.5); LYMPH % 25.6 % (24.0-44.0); MEAN CORPUSCULAR HEMOGLOBIN 31.1 pg (27.0-33.0); MEAN CORPUSCULAR HGB CONC 33.3 g/dl (32.0-36.5); MEAN CORPUSCULAR VOLUME 93.2 fl (80.0-96.0); MONO # 0.8 10^3/uL (0.0-0.8); NEUTROPHILS # 4.8 10^3/uL (1.5-8.5); NEUTROPHILS % 62.5 % (36.0-66.0); PLATELET COUNT, AUTOMATED 257 10^3/uL (150-450); RED BLOOD COUNT 3.99 10^6/uL (4.30-6.10); WHITE BLOOD COUNT 7.6 10^3/uL (4.0-10.0)
[2019-09-25 05:58] LABS: BLOOD UREA NITROGEN 10 MG/DL (7-18); CALCIUM LEVEL 8.4 MG/DL (8.5-10.1); CARBON DIOXIDE LEVEL 30 MEQ/L (21-32); CHLORIDE LEVEL 105 MEQ/L (98-107); CREATININE FOR GFR 1.22 MG/DL (0.70-1.30); GLOMERULAR FILTRATION RATE > 60.0 (>60); GLUCOSE, FASTING 91 MG/DL (70-100); POTASSIUM SERUM 4.1 MEQ/L (3.5-5.1); SODIUM LEVEL 140 MEQ/L (136-145)
[2019-09-25 07:11] VITALS: BP 108/53
[2019-09-25] MEDS: PANTOPRAZOLE 40MG TAB (PROTONIX) PO SCH (08:33)
[2019-09-25] MEDS: MOM 30ML SUSPENSION UDC PO SCH (08:33)
[2019-09-25] MEDS: DOCUSATE SODIUM 100 MG CAP PO SCH ×2 (08:33→20:41)
[2019-09-25] MEDS: HEPARIN SOD (PORCINE) 5000UNITS/ML VIAL (J1644 PER 1000UNITS) SC SCH ×2 (08:34→20:41)
--- NOTE | 2019-09-25 09:08 | RO ---
DATE OF PROCEDURE: 09/23/2019 PREPROCEDURE DIAGNOSIS: Recurrent right pneumothorax, extensive bullous and emphysematous disease right upper lobe. POSTOPERATIVE DIAGNOSIS: Recurrent right pneumothorax, extensive bullous and emphysematous disease right upper lobe. PROCEDURE: Video-assisted thoracoscopic surgery (VATS) wedge resection, bullectomy, talc pleurodesis, extensive lysis of adhesions, along with a five level rib block. SURGEON: Dr. Tim Butler POLY PACKER AND HEAT SEALER: ANESTHESIA: FINDINGS: The patient's lung was already down without a chest and therefore the patient was intubated directly with a double lumen tube and the right lung isolated. The thoracoscopic observations were extensive bullous disease along the right upper lobe. There were numerous adhesions of the bulla to the chest wall. These all had to be taken down with the harmonic scalpel. Brisk bleeding was encountered releasing one of the adhesions. I first thought that I was into the subclavian vein, however, it turned out to be a vascularized adhesion. The patient was typed and crossed immediately, but he did not need a transfusion and the total blood loss was only about 20 mL in the end. Talc was uniformly insufflated around the entire chest and a five level rib block was completed with Marcaine and Exparel. DESCRIPTION OF PROCEDURE: Under satisfactory general anesthesia and double lumen tube intubation, the first thoracoscopy incision was made in the axillary line and the port placed with insufflation and direct vision. The lung had already been down and had extensive atelectasis. The bulla could clearly be seen, which extended all around the rim of the upper lobe. There were very dense adhesions of the bulla to the chest wall and these were taken down by the harmonic scalpel slowly and carefully. At the very top of the cupula, pneumonic scalpel was activated and brisk bleeding ensued. I immediately called for a type and cross for the patient, however, it turned out that this was a vascularized adhesion and further dissection and cauterization with the harmonic scalpel got the bleeding under control. After taking down numerous adhesions of both the cupula and the mediastinum the lung could be completely freed up. Additional ports had already been placed and the bulla were resected in one long piece with approximately five firings of the stapler. Pictures were taken before and after. Talc was then uniformly insufflated throughout the entire chest. After ensuring ourselves of adequate hemostasis, two chest tubes were placed, a straight #24 and a curved #24, posteriorly. The tubes were placed through two of the VATS incisions and the third posterior incision was closed with running #0 Vicryl suture for the extrathoracic muscles, running #3-0 Vicryl suture for the subcutaneous tissue and running #4-0 Monocryl subcuticular sutures for the skin. A five level rib block was then undertaken with 0.25% Marcaine and Exparel. The incisions were also directly injected. The lung was reinflated under direct vision prior to closure of the posterior incision. The lung was seen to completely inflate. The patient tolerated the procedure well and left the operating room in satisfactory condition for the recovery room.
--- NOTE | 2019-09-25 09:55 | REP ---
CHEST, TWO VIEWS: Two views of the chest are performed and compared to the prior study of 09/24/2019. Two right chest tubes are again noted. Once again, there may be a tiny right apical pneumothorax. No new infiltrate is seen. The heart and mediastinum are unchanged. IMPRESSION: Stable exam. Electronically Signed by Jayme Navas MD 09/25/2019 09:49 P
--- NOTE | 2019-09-25 11:41 | IPN ---
DATE: 09/25/2019 This is now the second postoperative day for Mr. Tapia. His pain is being well controlled with the epidural. There is no air leak today. His vital signs show a T-max of 98.5 with a heart rate that ranges between 76 and 80 in a sinus rhythm, a respiratory rate of 18 to 19 without the use of accessory muscles, who is 98% saturated on room air, and whose blood pressure is ranging between 108/53 to 116/56. His intake and output the past 24 hours has been recorded as 1945 in and 1265 out for a positivity of 680 mL. He has put 305 mL out the chest tube. As mentioned above, there is no air leak. He weighs 77 kg today compared to 83.6 kg two days ago. I suspect there is a discrepancy in the bed scale. On physical examination, his lung show equal breath sounds on either side with normal vesicular sounds, without wheezes, rhonchi or rales. I hear no pleural friction rub. Percussion note is full to the diaphragm. Cardiac exam is without murmurs, clicks, gallops or rubs. I cannot feel his point of maximal impulse (PMI). S1, S2 are normal. Abdomen is soft, nontender. Bowel sounds are positive. There is no hepatomegaly. No costovertebral angle (CVA) tenderness. Extremities show no pretibial edema. No calf tenderness. No differential swelling of the upper extremities. Skin is warm, dry and perfused, without cyanosis or mottling, including that of the nail beds and knees. Neck is supple. There is no jugular venous distention. No subcutaneous emphysema. Trachea is midline. Mouth shows his mucous membranes to be pink and moist. Lips and commissures without lesions. There is no thrush. Eyes show his pupils to be equal and reactive. Extraocular motions are intact. Sclerae nonicteric. Neurologic shows II-XII intact along with gross motor and gross sensation intact. Gait is not tested. Psychiatric shows him to be awake, alert and oriented times three, with appropriate mood and affect, and conversational. His white count today is 7.6 with hemoglobin and hematocrit of 12.4 and 37.2, unchanged from yesterday, with a platelet count of 257 and stable. Differential shows 62% neutrophils, 25% lymphocytes, and 10% monocytes. There are no immature forms and no toxic granulations. His electrolytes are normal with a BUN and creatinine of 10 and 1.22 with a glucose of 91 and a calcium of 8.4. He continues on Toradol. His chest x-ray shows his lung fully expanded to the chest wall. Costophrenic angles are sharp. There are no infiltrates. IMPRESSION: 1. Postoperative day #2 status post bullectomy, multiple wedge resections and talc pleurodesis right side. 2. 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 3. Recurrent pneumothorax right side. PLAN AND DISCUSSION: I will continue his chest tubes on suction today. Even though he has put out 305 mL in chest tube output, I will not diurese him. I suspect he will be able to self diurese himself. Plan to remove the tubes on the fifth postoperative day, which will be Thursday. Until then, I will keep him on suction.
[2019-09-25 12:00] VITALS: BP 124/65
[2019-09-25 16:00] VITALS: BP 105/56
[2019-09-25] MEDS: FENTANYL/BUPIVACAINE/NACL BAG 250 ML EPIDURAL SCH (17:20)
[2019-09-25 20:00] VITALS: BP 134/59
[2019-09-26] VITALS: BP 115/59
[2019-09-26] MEDS: LEVALBUTEROL 1.25 MG/0.5 ML CONCENTRATE NEB NEB SCH ×4 (01:41→19:04)
[2019-09-26 04:00] VITALS: BP 134/75
[2019-09-26 05:12] LABS: BASO % 0.3 % (0.0-1.0); EOS # 0.2 10^3/uL (0.0-0.5); EOS % 3.6 % (0.0-3.0); HEMATOCRIT 36.1 % (42.0-52.0); HEMOGLOBIN 12.1 g/dl (13.5-17.5); LYMPH # 1.7 10^3/uL (1.5-5.0); LYMPH % 29.2 % (24.0-44.0); MEAN CORPUSCULAR HEMOGLOBIN 31.1 pg (27.0-33.0); MEAN CORPUSCULAR HGB CONC 33.5 g/dl (32.0-36.5); MEAN CORPUSCULAR VOLUME 92.8 fl (80.0-96.0); MONO # 0.7 10^3/uL (0.0-0.8); MONO % 11.5 % (0.0-5.0); NEUTROPHILS # 3.2 10^3/uL (1.5-8.5); NEUTROPHILS % 55.2 % (36.0-66.0); PLATELET COUNT, AUTOMATED 264 10^3/uL (150-450); RED BLOOD COUNT 3.89 10^6/uL (4.30-6.10); WHITE BLOOD COUNT 5.9 10^3/uL (4.0-10.0)
[2019-09-26 05:32] LABS: BLOOD UREA NITROGEN 11 MG/DL (7-18); CALCIUM LEVEL 8.9 MG/DL (8.5-10.1); CARBON DIOXIDE LEVEL 30 MEQ/L (21-32); CHLORIDE LEVEL 105 MEQ/L (98-107); CREATININE FOR GFR 1.18 MG/DL (0.70-1.30); GLOMERULAR FILTRATION RATE > 60.0 (>60); GLUCOSE, FASTING 103 MG/DL (70-100); POTASSIUM SERUM 3.9 MEQ/L (3.5-5.1); SODIUM LEVEL 139 MEQ/L (136-145)
[2019-09-26] MEDS: KETOROLAC 30 MG/ML 1ML VIAL IV SCH ×4 (05:50→23:42)
--- NOTE | 2019-09-26 07:52 | REP ---
Clinical: Pneumothorax. Technique: PA and lateral. Comparison: 09/25/2019. Findings: Two right-sided chest tubes in stable position and no definite residual pneumothorax is appreciated. Lung dickson are relatively clear and without acute consolidation or effusion. Mediastinum and cardiac silhouette are normal. Skeletal structures are intact. Impression: No appreciable right-sided pneumothorax identified. No new acute process. Electronically Signed by Haja Beth MD 09/26/2019 07:44 A
[2019-09-26 08:00] VITALS: BP 114/62
[2019-09-26] MEDS: MOM 30ML SUSPENSION UDC PO SCH (08:55)
[2019-09-26] MEDS: PANTOPRAZOLE 40MG TAB (PROTONIX) PO SCH (09:00)
[2019-09-26] MEDS: HEPARIN SOD (PORCINE) 5000UNITS/ML VIAL (J1644 PER 1000UNITS) SC SCH ×2 (09:00→20:59)
[2019-09-26] MEDS: DOCUSATE SODIUM 100 MG CAP PO SCH ×2 (09:00→20:59)
[2019-09-26 12:00] VITALS: BP 125/79
[2019-09-26] MEDS: FENTANYL/BUPIVACAINE/NACL BAG 250 ML EPIDURAL SCH (17:54)
--- NOTE | 2019-09-26 18:36 | IPNPDOC ---
Subjective Date Seen The patient was seen on 09/26/19. Subjective Chief Complaint/HPI Patient denies any pain. he has not had a bowel movement in several days. he wants his epidural to be weaned off and his larios to be taken out. I explained that if his pain becomes bad on weaning the epidural. He does not want percocet but is agreeable to toradol if he needs it. I explained to the patient and his that the plan is for him to be discharged on 09/29/19 and that we want the pain well controlled so that he can do his incentive spirometry and walk around otherwise he may develop a pneumonia and then his recovery will be delayed. Objective Physical Examination General Exam: Positive: Alert, Cooperative, No Acute Distress Eye Exam: Positive: PERRLA, Conjunctiva & lids normal, EOMI; Negative: Sclera icteric ENT Exam: Positive: Atraumatic, Mucous membr. moist/pink, Pharynx Normal Neck Exam: Positive: Supple; Negative: JVD, thyromegaly Chest Exam: Positive: Clear to auscultation, Normal air movement, Other (no subcutaneous edema); Negative: Rales, Rhonchi, Wheezing Heart Exam: Positive: Rate Normal, Regular Rhythm, Normal S1, Normal S2; Negative: Murmurs, Rubs Telemetry: Positive: No significant arrhythmia Abdomen Exam: Positive: Normal bowel sounds, Soft, Other (epidural in place); Negative: Tenderness, Hepatospenomegaly Extremity Exam: Positive: Normal pulses; Negative: Clubbing, Cyanosis, Edema Skin Exam: Positive: Nl turgor and temperature; Negative: Rash, Breakdown Assessment /Plan Assessment 24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 He had a chest tube placed and pneumo resolved so the chest tube was taken out on 09/20. 24 hours later he had a recurrent pneumothorax on the same side so he was taken to the OR by Dr Butler on 09/23/19 and had : Video-assisted thoracoscopic surgery (VATS) wedge resection, bullectomy, talc pleurodesis, extensive lysis of adhesions, along with a five level rib block. He had an epidural placed for pain control. He has a chest tube still on suction. He has been progressing well as expected . Today he heard the news that his sister in [place] who is in hospice has taken a turn for the worse so he wanted to be discharged so that he could drive down to [place]. Dr Butler explained that he has to have the chest tube till 09/29/19 . Its not safe to take out today. He wanted his epidural and larios out and he wanted to sign out AMA. [employer] chain of command got involved and he has been ordered by his Commanding General, surgeon general of his division to stay in and complete his treatment. He has been upset and wanted a different doctor. Dr Butler requested hospitalist service to take over his care. Recurrent right sided pneumothorax Postoperative day #3 status post bullectomy, multiple wedge resections and talc pleurodesis right side. Planned to be taken off suction tomorrow and cxr in 24 hours if OK then tube will come out on post op day 5 pain control with epidural being weaned now will dc larios as pateint wants it out. 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 Plan/VTE VTE Prophylaxis Ordered?: Yes VS, I&O, 24H, Fishbone Vital Signs/I&O Vital Signs Date Time Temp Pulse Resp B/P (MAP) Pulse Ox O2 Delivery O2 Flow Rate FiO2 09/26/19 12:00 98.3 68 20 125/79 (94) 96 Room Air 09/24/19 07:36 2.0 I&O- Last 24 Hours up to 6 AM 09/26/19 05:59 Intake Total 1300 ml Output Total 1690 ml Balance -390 ml Laboratory Data 24H LABS Laboratory Tests 2 09/26/19 04:46: Immature Granulocyte % (Auto) 0.2, Neutrophils (%) (Auto) 55.2, Lymphocytes (%) (Auto) 29.2, Monocytes (%) (Auto) 11.5H, Eosinophils (%) (Auto) 3.6H, Basophils (%) (Auto) 0.3, Neutrophils # (Auto) 3.2, Lymphocytes # (Auto) 1.7, Monocytes # (Auto) 0.7, Eosinophils # (Auto) 0.2, Basophils # (Auto) 0.0, Nucleated Red Blood Cells % (auto) 0.0, Anion Gap 4L, Glomerular Filtration Rate > 60.0, Calcium Level 8.9 CBC/BMP Laboratory Tests 09/26/19 04:46 GARCIA LEWIS MD Sep 26, 2019 18:13
[2019-09-26 20:00] VITALS: BP 148/67
--- NOTE | 2019-09-26 21:02 | IPN ---
DATE: 09/26/2019 This is Mr. Tapia third postoperative day. Early this afternoon, after office, I went to see him on rounds, and he was insistent that I remove his chest tube and that he wanted to leave the hospital against medical advice. His sister is now on hospice with cancer in [place], and he wants to go see her. I advised him that it would be dangerous to remove his chest tube at this point in time, and that the chest tube needs to stay in at least 4-5 days in order to complete the inflammatory response to adhere the lung to the chest wall. He does not have an air leak with forceful talking, although he would not cough for me. The interaction became quite adversarial during my visit with him with assertions of his legal rights and illogical contradictions. He would not let me examine him. I indicated to him that I had to go to the operating room and I would be back. He was obviously very upset with me for not removing his chest tube and discharging him from the hospital against medical advice, and I proceeded to contact Dr. Luke Russ, the Esthetician/Spa Coordinator, and the nursing general warehouse associate. The personnel office at [facility] was contacted by the nursing game farm supervisor. The [employer] then sent a [employer] commander to the hospital. We explained the situation to the [employer] commander, and he then sought legal advice from [facility] [employer]. In the meantime, I also spoke to a battalion surgeon explaining the medical situation. After again trying to reason with Mr. Tapia and, indeed, his on the phone that it would not be in his best interest for him to leave the hospital at this point in time, and after he was again absolutely insistent, the [employer] captain issued an order for him to stay in the hospital. I believe it was called a temporary change of station. The [employer] commander also assured us that should the patient become unruly that they would post an NCO outside the door. Mr. Tapia would not let me examine him, and, in fact, discharged me as his physician. I explained to him that I was the only thoracic surgeon available in the hospital, but that we could have as a physician interface the hospitalists, who were notified, and Dr. Odell graciously accepted him in transfer to their service. I will still be looking in after his chest tube and any surgical problems. His vital signs show a maximum temperature (T max) of 98.3 with a heart rate that ranges between 63 and 80 and is sinus rhythm, respiratory rate of 16 to 20 without the use of accessory muscles, who is 94% saturated on room air and whose blood pressure is ranging between 105/56 to 134/75. His intake and output over the past 24 hours has been recorded as 1650 in and 2050 out for a negativity of 400 mL. He has put 200 mL out his chest tube. He weighs 77.6 kg compared to 77 kg yesterday. As noted above, he would not let me examine him. His white count is 5.9 with a hemoglobin and hematocrit of 12.1 and 36.1 respectively and a platelet count of 264, which is stable. Differential shows 55% neutrophils, 29% lymphocytes, 11% monocytes. There are no immature forms. No toxic granulations. His electrolytes are normal with a BUN and creatinine of 11 and 1.18, a glucose of 103, and a calcium of 8.9. His chest x-ray shows his lung fully expanded to the chest wall. I do see a small line at the cupola of the chest, but I see lung markings behind it, and I do not think there is a pneumothorax or an airspace. Costophrenic angles are sharp, and I see no infiltrates. IMPRESSION: 1. Postoperative day #3 status post bullectomy and multiple wedge resections and talc pleurodesis right side. 2. 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 3. Recurrent pneumothorax right side. PLAN AND DISCUSSION: As noted above, he will officially be transferred to the hospitalist service, although I will address his surgical problems. He is insisting that the epidural be weaned and removed. I have consented to that and as such, we will also remove his Parisi catheter. He is not accepting any Toradol. I have a sinking feeling that he is going to start to develop some significant pain from the pleuritic inflammatory response. He has narcotic analgesia orally ordered. I have asked the nurses not to have anesthesia remove the epidural catheter as he may have intractable pain after withdrawing the epidural infusion. I will discontinue his chest tube suction tomorrow, and Thursday we will take another chest x-ray. If the lung is fully expanded to the chest wall, I will remove his chest tube. My usual strategy after removal of the chest tube is to wait 24 hours and followup with another chest x-ray to make sure the lung remains expanded to the chest wall. I can modify that by waiting 8 hours after I pull the chest tube and take another chest x-ray. At that point in time, he could leave the hospital. He will need surgical followup, and I will have to address that with him, although he has dismissed me as his doctor. At the time of discharge, I will try to remove his suture tags. I am quite sympathetic towards his need to be with his sister; however, should his lung go down between [facility] and [place], he could get in very deep trouble. While he has no air leak, his staple line has got to heal satisfactorily and the lung has got to complete the inflammatory reaction to stay adherent to the chest wall. FELIX
[2019-09-27] VITALS: BP 117/57
[2019-09-27] MEDS: LEVALBUTEROL 1.25 MG/0.5 ML CONCENTRATE NEB NEB SCH ×4 (01:17→19:06)
[2019-09-27 04:00] VITALS: BP 138/71
[2019-09-27 05:11] LABS: BASO % 0.4 % (0.0-1.0); EOS # 0.2 10^3/uL (0.0-0.5); EOS % 4.4 % (0.0-3.0); HEMATOCRIT 37.1 % (42.0-52.0); HEMOGLOBIN 12.4 g/dl (13.5-17.5); LYMPH # 1.6 10^3/uL (1.5-5.0); LYMPH % 29.2 % (24.0-44.0); MEAN CORPUSCULAR HEMOGLOBIN 30.8 pg (27.0-33.0); MEAN CORPUSCULAR HGB CONC 33.4 g/dl (32.0-36.5); MEAN CORPUSCULAR VOLUME 92.3 fl (80.0-96.0); MONO # 0.6 10^3/uL (0.0-0.8); MONO % 11.3 % (0.0-5.0); NEUTROPHILS % 54.3 % (36.0-66.0); PLATELET COUNT, AUTOMATED 300 10^3/uL (150-450); RED BLOOD COUNT 4.02 10^6/uL (4.30-6.10); WHITE BLOOD COUNT 5.5 10^3/uL (4.0-10.0)
[2019-09-27 05:33] LABS: BLOOD UREA NITROGEN 14 MG/DL (7-18); CARBON DIOXIDE LEVEL 30 MEQ/L (21-32); CHLORIDE LEVEL 105 MEQ/L (98-107); CREATININE FOR GFR 1.26 MG/DL (0.70-1.30); GLOMERULAR FILTRATION RATE > 60.0 (>60); GLUCOSE, FASTING 119 MG/DL (70-100); SODIUM LEVEL 140 MEQ/L (136-145)
[2019-09-27] MEDS: KETOROLAC 30 MG/ML 1ML VIAL IV SCH ×4 (06:09→23:46)
[2019-09-27 07:44] VITALS: BP 129/76
--- NOTE | 2019-09-27 07:49 | REP ---
Clinical: Follow up pneumothorax. Technique: PA and lateral. Comparison: 09/26/2019, 09/25/2019. Findings: Two right-sided chest tubes in stable position. Right apical blebs versus small residual apical pneumothorax cannot definitively be differentiated and appears relatively stable when compared to 09/25/2019. The lung dickson are otherwise relatively clear and without new acute process. Mediastinum and cardiac silhouette are normal. Skeletal structures are intact. Impression: 1. Stable examination. Right apical blebs versus small residual right apical pneumothorax essentially unchanged compared through 09/25/2019. 2. No new acute process identified. Electronically Signed by Haja Beth MD 09/27/2019 07:40 A
[2019-09-27] MEDS: PANTOPRAZOLE 40MG TAB (PROTONIX) PO SCH (08:43)
[2019-09-27] MEDS: HEPARIN SOD (PORCINE) 5000UNITS/ML VIAL (J1644 PER 1000UNITS) SC SCH ×2 (08:44→19:43)
[2019-09-27] MEDS: MOM 30ML SUSPENSION UDC PO SCH (08:44)
[2019-09-27] MEDS: DOCUSATE SODIUM 100 MG CAP PO SCH ×2 (08:44→19:42)
[2019-09-27] MEDS ORDERED: SLF 3 ML SYR IV PRN (09:00)
--- NOTE | 2019-09-27 10:37 | IPN ---
DATE: 09/27/2019 Mr. Tapia does not want to talk to me today. In fact, he would not even cough for me. He does not want me as his doctor. He did raise his voice enough to create enough intrathoracic pressure to assure myself that he does not have an air leak. I have therefore taken his chest tube of suction. His vital signs show a maximum temperature (Tmax) of 98.3 with a heart rate that ranges between 74-64 in a sinus rhythm, respiratory rate of 18-20 without the use of accessory muscles, who is 94% saturated on room air and whose blood pressure is ranging between 140/67-125/79. His intake and output over the past 24 hours has been recorded as 1120 in and 1862 out for a negativity of 742 mL. His chest tube has put out 112 mL and as noted above, there is no air leak. Weight is not done on him today. I am not sure whether that is secondary to the nursing staff not doing it or whether he refused to do it. He did not allow me to examine him. White count today is 5.5, with hemoglobin and hematocrit of 12.4 and 37.1, with a platelet count of 300. Differential shows 54% neutrophils, 29% lymphocytes, 11% monocytes. There are no immature forms, no toxic granulations. His electrolytes are normal with BUN and creatinine of 14 and 1.26, glucose of 119, and a calcium of 9.0. His chest x-ray shows his lung fully expanded to the chest wall. I see the staple lines. There is a faint line that could perhaps represent an apical air space, although I am not sure whether this is a lung line or a staple line. Nonetheless, it is not significant. So long as it remains stable off suction I will be content to remove his chest tubes tomorrow. IMPRESSION: 1. Postoperative day #4 status post bullectomy and multiple wedge resections and talc pleurodesis right side. 2. 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 3. Recurrent pneumothorax right side. PLAN AND DISCUSSION: Yesterday, I told him that his alpha-1 antitrypsin has returned negative. That got lost in the problems yesterday with him demanding to be discharged. As noted above, I will discontinue his chest tube suction today. If the chest x-ray is stable and the lung remains up, I will plan to remove his chest tubes in the morning and then take a chest x-ray 8 hours later, and then discharge him. I do anticipate some awkward problematic moments tomorrow in that he does not want me to remove his chest tube but rather wishes the hospitalist to. I have indicated to him they are not surgeons and they will not be removing the chest tube. I have spoken to the guard on duty and indicated to him that should his chest tube need removing tomorrow we will need to convince him to let us do that. All and all this is an incredibly difficult situation one in which I have never been placed. My ethical duty is to assure him a benign postoperative course and an uneventful recovery. 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 We will provide all the preoperative CT scans and x-rays, as well as his discharge x-ray if that is amenable to the [employer].
[2019-09-27] MEDS: SLF 3 ML SYR IV SCH ×2 (11:10→23:46)
[2019-09-27 12:00] VITALS: BP_SYST 110; BP_SYST 118; BP_DIAS 58; BP_DIAS 78
[2019-09-27 16:00] VITALS: BP 117/58
--- NOTE | 2019-09-27 17:44 | IPNPDOC ---
Date Seen The patient was seen on 09/27/19. Progress Note SUBJECTIVE: 24 y.o male with recurrent pneumothorax was admitted with a right- sided pneumothorax, underwent chest tube placement, followed by VATS procedure during which less of adhesions, wedge resection and talc pleurodesis was performed. Patient is seen in the morning, comfortable, without any complaints at this time, denies any dyspnea, chest pain, cough, nausea, vomiting, abdominal pain or diarrhea. Patient has serosanguineous drainage from chest tube, no air leak at this time. 10 point review of system is negative except for above PHYSICAL EXAMINATION: VITAL SIGNS: Please see below. GENERAL: No distress HEENT: Normocephalic, atraumatic, moist mucous membranes NECK: Supple CARDIOVASCULAR EXAMINATION: S1, S2, no murmurs RESPIRATORY EXAMINATION: Diminished on the right side, clear to auscultation on the left side, no wheezing, chest tube without air leak ABDOMINAL EXAMINATION: Soft, nontender, nondistended, positive bowel sounds EXTREMITIES: Range of motion intact SKIN: No rash NEUROLOGICAL EXAMINATION: Alert and oriented 3, no focal deficits PSYCHIATRIC EXAMINATION: Calm and cooperative LABORATORY DATA, IMAGING STUDIES, MICROBIOLOGY: Please see below. ASSESSMENT AND PLAN: 24-year-old male with recurrent pneumothorax was admitted for right sided pneumothorax requiring chest tube placement followed by VATS. PROBLEMS: 1. Recurrent pneumothorax: Status post chest tube placement followed by VATS procedure, lysis of adhesions, wedge resection, talc pleurodesis. Chest tube draining serosanguineous fluid, no air leak, has been clamped today, repeat chest x-ray in the morning, plan for removal if normal, followed by repeat x-ray in 8 hours and potential discharge if x-ray within normal limits, thoracic surgery managing chest tube, pain control. DVT prophylaxis: Heparin subcutaneous GI prophylaxis: PPI VS, I&O, 24H, Fishbone Vital Signs/I&O Vital Signs Date Time Temp Pulse Resp B/P (MAP) Pulse Ox O2 Delivery O2 Flow Rate FiO2 09/27/19 12:00 Room Air 09/24/19 07:36 2.0 I&O- Last 24 Hours up to 6 AM 09/27/19 05:59 Intake Total 1120 ml Output Total 1322 ml Balance -202 ml Laboratory Data 24H LABS Laboratory Tests 2 09/27/19 04:55: Immature Granulocyte % (Auto) 0.4, Neutrophils (%) (Auto) 54.3, Lymphocytes (%) (Auto) 29.2, Monocytes (%) (Auto) 11.3H, Eosinophils (%) (Auto) 4.4H, Basophils (%) (Auto) 0.4, Neutrophils # (Auto) 3.0, Lymphocytes # (Auto) 1.6, Monocytes # (Auto) 0.6, Eosinophils # (Auto) 0.2, Basophils # (Auto) 0.0, Nucleated Red Blood Cells % (auto) 0.0, Anion Gap 5L, Glomerular Filtration Rate > 60.0, Calcium Level 9.0 CBC/BMP Laboratory Tests 09/27/19 04:55 DAVIAN FARFAN MD Sep 27, 2019 17:44
[2019-09-27 20:00] VITALS: BP 134/65
[2019-09-28] VITALS: BP 144/65
[2019-09-28] MEDS: LEVALBUTEROL 1.25 MG/0.5 ML CONCENTRATE NEB NEB SCH ×4 (01:19→20:00)
[2019-09-28 04:00] VITALS: BP 117/58
[2019-09-28 04:57] LABS: BASO % 0.4 % (0.0-1.0); EOS # 0.3 10^3/uL (0.0-0.5); EOS % 4.9 % (0.0-3.0); HEMATOCRIT 37.2 % (42.0-52.0); HEMOGLOBIN 12.5 g/dl (13.5-17.5); LYMPH # 1.7 10^3/uL (1.5-5.0); LYMPH % 30.3 % (24.0-44.0); MEAN CORPUSCULAR HEMOGLOBIN 30.6 pg (27.0-33.0); MEAN CORPUSCULAR HGB CONC 33.6 g/dl (32.0-36.5); MEAN CORPUSCULAR VOLUME 91.2 fl (80.0-96.0); MONO # 0.5 10^3/uL (0.0-0.8); MONO % 8.5 % (0.0-5.0); NEUTROPHILS # 3.1 10^3/uL (1.5-8.5); NEUTROPHILS % 55.7 % (36.0-66.0); PLATELET COUNT, AUTOMATED 325 10^3/uL (150-450); RED BLOOD COUNT 4.08 10^6/uL (4.30-6.10); WHITE BLOOD COUNT 5.5 10^3/uL (4.0-10.0)
[2019-09-28 05:17] LABS: BLOOD UREA NITROGEN 15 MG/DL (7-18); CALCIUM LEVEL 8.8 MG/DL (8.5-10.1); CARBON DIOXIDE LEVEL 29 MEQ/L (21-32); CHLORIDE LEVEL 105 MEQ/L (98-107); CREATININE FOR GFR 1.26 MG/DL (0.70-1.30); GLOMERULAR FILTRATION RATE > 60.0 (>60); GLUCOSE, FASTING 102 MG/DL (70-100); SODIUM LEVEL 139 MEQ/L (136-145)
[2019-09-28] MEDS: SLF 3 ML SYR IV SCH ×3 (06:00→20:49)
[2019-09-28] MEDS: KETOROLAC 30 MG/ML 1ML VIAL IV SCH ×2 (06:01→12:00)
[2019-09-28 07:45] VITALS: BP 145/64
[2019-09-28] MEDS: MOM 30ML SUSPENSION UDC PO SCH (08:15)
[2019-09-28] MEDS: PANTOPRAZOLE 40MG TAB (PROTONIX) PO SCH (08:15)
[2019-09-28] MEDS: DOCUSATE SODIUM 100 MG CAP PO SCH ×2 (08:15→20:47)
[2019-09-28] MEDS: HEPARIN SOD (PORCINE) 5000UNITS/ML VIAL (J1644 PER 1000UNITS) SC SCH ×2 (08:15→20:47)
--- NOTE | 2019-09-28 10:18 | REP ---
CHEST, TWO VIEWS: Two views of the chest are performed and compared to a prior study of 09/27/2019. Two right chest tubes remain in place. There is a tiny right apical pneumothorax unchanged. No acute infiltrate is seen in either lung. The heart and mediastinum are unchanged. IMPRESSION: Stable exam. Electronically Signed by Jayme Navas MD 09/28/2019 10:53 A
--- NOTE | 2019-09-28 10:31 | DSES ---
DATE OF ADMISSION: 09/19/2019 DATE OF DISCHARGE: 09/29/2019 DISCHARGE DIAGNOSES: 1. Recurrent spontaneous pneumothorax right side. 2. 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 3. Prior history of tobacco abuse. 4. Postoperative day #5 status post wedge resection, bullectomy and talc pleurodesis right upper lobe. HOSPITAL COURSE: The patient is a 24-year-old black male who was admitted on 09/19/2019 when he presented to the emergency room with chest pain and shortness of breath. It is notable that his shortness of breath occurred approximately four days prior to admission. He was found to have a large pneumothorax and a chest tube was placed. The chest tube stopped leaking and it was then removed. Twenty four hours later, a chest x-ray was undertaken which showed that his lung had again dropped and therefore it was recommended that he be taken to the operating room to undergo a wedge resection and talc pleurodesis. His CT scan when the lung was reexpanded prior to removing his chest tube showed extensive right upper lobe cystic disease, much more than would be expected in a patient his age and who had had a previously very limited smoking history who had stopped approximately two years prior to admission. He was also found to have the same cystic disease on the left side, however, to a much lesser extent. These were more than the usual congenital blebs that are seen. He was therefore taken to the operating room on 09/23/2019 where he underwent a video assisted large wedge resection of the right upper lobe, bullectomy and talc pleurodesis and an extensive of lysis of adhesions along where the cystic disease had been adherent to the chest wall along with a five level rib block. The patient had a benign postoperative course with his air leak stopping within 48 hours. On the third postoperative day, the patient demanded to be discharged as his sister was in [place] in hospice and with cancer. There was real concern that the chest tube was not ready to be removed as the inflammatory response had not completely adhered the lung to the chest wall. After discussion with the division surgeon in [employer] he was not discharged from the hospital. His chest tube was removed on the fifth postoperative day and his chest x-ray is to be taken eight hours later and if that is satisfactory he will be discharged. On the day of discharge, his physical examination showed his lungs to have equal breath sounds on either side without wheezes, rhonchi or rales. His wounds were well healed and his suture tags were removed as were his chest tubes. He has been instructed to remove the dressing tomorrow after discharge and at that point he can take a shower and leave the wounds open to air. He is not taking any pain medications other than Toradol and I have instructed him to take Aleve or ibuprofen for pain control, but not both, which can be also supplemented with Tylenol. His discharge x-ray is pending. We will provide him with copies of his CAT scan and chest x-rays. His discharge white count is 5.5 with a hemoglobin and hematocrit of 12.5 and 37.2 and a platelet count of 325. Discharge electrolytes are normal with a BUN and creatinine of 15 and 1.26, calcium of 8.8 and glucose of 102. His [id number] level with normal (101, reference range 95 - 164mg/dl). The patient has been offered an appointment to see me in 7-10 days with a chest x-ray, however, he indicates that he is going to be in [place] visiting his sister and I have spoken to his division surgeon, [employer], to make arrangements for him to followup with a chest x-ray in 10-14 days with a physician in [place]. Chest x-ray night before discharge after the chest tube was removed showed a 2cm apical air cap. This was repeated the morning of discharge and the apical cap was stable without subcutaneous emphysema. This was either due to air entry at the time of chest tube removal or because of the lung has not completely expanded to fill the chest secondary to the large amount of cystic disease that was removed at surgery. This should resolve in about 2 weeks. ADDENDUM: Mr. Tapia has been advised not to fly or lift anything heavier than 10lbs for the next 6 weeks. However, he is intending to drive to [place], and he has medical clearance to ride in a car with someone else driving. [facility]
[2019-09-28 11:42] VITALS: BP 145/83
[2019-09-28 15:52] VITALS: BP 152/70
--- NOTE | 2019-09-28 17:55 | REP ---
Chest x-ray: Two views. History: Pneumothorax. Comparison study September 28, 2019 at 07:55 a.m... Findings: The right sided chest tubes have been withdrawn. There is a small right apical pneumothorax which has increased slightly in size. There are postoperative sutures in the right apex. The left lung is clear. The right lung is otherwise clear. No pleural effusion is seen. Heart is not enlarged. Impression: Right chest tubes have been withdrawn. A small right apical pneumothorax, slightly increased in size. Electronically Signed by Bandar Garcia MD 09/28/2019 05:46 P
[2019-09-28 20:00] VITALS: BP 133/80
[2019-09-29] VITALS: BP 114/57
[2019-09-29] MEDS: LEVALBUTEROL 1.25 MG/0.5 ML CONCENTRATE NEB NEB SCH ×2 (02:00→07:41)
[2019-09-29 04:00] VITALS: BP 128/65
[2019-09-29 05:24] LABS: BASO % 0.7 % (0.0-1.0); EOS # 0.2 10^3/uL (0.0-0.5); EOS % 4.1 % (0.0-3.0); HEMOGLOBIN 12.8 g/dl (13.5-17.5); LYMPH % 34.5 % (24.0-44.0); MEAN CORPUSCULAR HEMOGLOBIN 30.7 pg (27.0-33.0); MEAN CORPUSCULAR HGB CONC 33.7 g/dl (32.0-36.5); MEAN CORPUSCULAR VOLUME 91.1 fl (80.0-96.0); MONO # 0.6 10^3/uL (0.0-0.8); MONO % 10.6 % (0.0-5.0); NEUTROPHILS # 2.9 10^3/uL (1.5-8.5); NEUTROPHILS % 49.9 % (36.0-66.0); PLATELET COUNT, AUTOMATED 330 10^3/uL (150-450); RED BLOOD COUNT 4.17 10^6/uL (4.30-6.10); WHITE BLOOD COUNT 5.9 10^3/uL (4.0-10.0)
[2019-09-29] MEDS: SLF 3 ML SYR IV SCH (05:27)
[2019-09-29 05:56] LABS: BLOOD UREA NITROGEN 17 MG/DL (7-18); CALCIUM LEVEL 9.4 MG/DL (8.5-10.1); CARBON DIOXIDE LEVEL 29 MEQ/L (21-32); CHLORIDE LEVEL 106 MEQ/L (98-107); CREATININE FOR GFR 1.32 MG/DL (0.70-1.30); GLOMERULAR FILTRATION RATE > 60.0 (>60); GLUCOSE, FASTING 95 MG/DL (70-100); POTASSIUM SERUM 4.3 MEQ/L (3.5-5.1); SODIUM LEVEL 141 MEQ/L (136-145)
--- NOTE | 2019-09-29 06:27 | REP ---
Clinical: Follow up pneumothorax . Comparison: 09/28/2019 . Technique: PA and lateral. Findings: Small right apical pneumothorax is again identified and essentially unchanged measuring roughly 2.4 cm from the underlying rib cage margin. The mediastinum and cardiac silhouette are normal. The lung dickson are otherwise clear and without acute consolidation or effusion. Skeletal structures intact. Impression: 1. Small stable right apical pneumothorax. 2. No new acute process. Electronically Signed by Haja Beth MD 09/29/2019 06:19 A
[2019-09-29 07:37] VITALS: BP 138/75
== END 2019-09-29 09:00 | disposition home or self-care (01) | DRG 167 ==
LOC: M ED 01:37 → M ED INP 02:59 → ENRESERVTM 03:25 → ENRESERVDT 03:25 → M PCU 03:34 → M RR INP 09-23 18:21 → M PCU 09-24 13:28
PROVIDERS: ADMIT Thoracic Surgery (Cardiothoracic Vascular Surgery); ATTEND Thoracic Surgery (Cardiothoracic Vascular Surgery)
PROC: 0W9930Z Drainage of Right Pleural Cavity with Drainage Device, Percutaneous Approach (ICD-10-PCS; 2019-09-19)
PROC: 0BBC4ZX Excision of Right Upper Lung Lobe, Percutaneous Endoscopic Approach, Diagnostic (ICD-10-PCS; 2019-09-23)
PROC: 3E0L3GC Introduction of Other Therapeutic Substance into Pleural Cavity, Percutaneous Approach (ICD-10-PCS; 2019-09-23)
PROC: 0BJQ4ZZ Inspection of Pleura, Percutaneous Endoscopic Approach (ICD-10-PCS; principal; 2019-09-23 15:15)
DX: J93.83 Other pneumothorax (principal); Q33.0 Congenital cystic lung; Z87.891 Personal history of nicotine dependence; J43.9 Emphysema, unspecified

== ENCOUNTER → 2019-11-01 | Outpatient (CLI) | payer OTHER ==
--- NOTE | 2019-11-01 17:53 | REPPI ---
Clinical: Pneumothorax . Comparison: 09/29/2019 . Technique: PA and lateral. Findings: The mediastinum and cardiac silhouette are normal. The lung dickson demonstrate scarring and bullous changes involving the bilateral apices (right greater than left). No obvious pneumothorax identified. Skeletal structures are intact. Impression: Chronic biapical changes. No obvious pneumothorax. Electronically Signed by Haja Beth MD 11/01/2019 05:44 P
== END ==
LOC: M PLAIMG 14:07
PROVIDERS: ATTEND Thoracic Surgery (Cardiothoracic Vascular Surgery)
DX: J93.9 Pneumothorax, unspecified (principal)